=== PATIENT | female | born 1935 | race Caucasian/White ===

== ENCOUNTER → 2018-03-02 | Outpatient (CLI) | payer OTHER ==
[2018-02-19 15:32] VITALS: BP 134/53
[~2018-03-02] MED LIST: AMLO10TA6 PO; AMOX1TAB58 PO; ASPI-612 PO; CELE200C PO; CITA40TA5 PO; HYDR-2868 PO; HYDR-3164 PO; IPRA3AMP29 NEB; LIDO700A39 TP; METO-247 PO; METO100T7 PO; PRED20TA PO; Pantoprazole PO; SIMV40TA3 PO; [UNRECOGNIZED DRUG - OTHER]
--- NOTE | 2018-03-02 14:37 | KCIC ---
Examination: Left Lower Extremity Venous Doppler Ultrasound History: Left lower extremity swelling Comparison: None Procedure: Marcum scale, color flow 2D and spectal waveform analysis images are obtained with and without compression in the area of the common femoral vein, superficial femoral vein - femoral vein junction, main femoral vein (superficial femoral vein) and popliteal vein. Veins of the proximal calf are also imaged. Findings: There is normal duplex flow, color flow and compressibility of all visualized vein segments. No evidence of deep venous thrombus is present. Impression: No evidence of DVT in the left lower extremity venous system. Electronically signed by: David Ansari MD (03/02/2018 2:32 PM) [facility]
== END | disposition home or self-care (01) ==
LOC: KCIC US 12:59
PROVIDERS: ATTEND Nurse Practitioner
DX: M79.89 Other specified soft tissue disorders (principal)
CPT/HCPCS: 93971

== ENCOUNTER → 2018-04-01 | Outpatient (CLI) | payer OTHER ==
[2018-02-19 15:32] VITALS: BP 134/53
[~2018-04-01] MED LIST changes: -AMLO10TA6 PO; +AMLO10TA8 PO; +REGADENOSON 0.4 MG/5 ML DISP.SYRIN. IV ONE
--- NOTE | 2018-04-01 13:43 | RAD ---
MR#: [id number] Date of Study: 04/01/2018 Ordering Physician: MILLI SMITH, Referring Physician: GENE RDZ Tech: Jada Hill RT (R) (N) APPROVED REPORT Test Type: Pharmacological Stress Nurse/Tech: Aleida Hunt RN Test Indications: Diastolic Heart Failure Cardiac History: Hypertension, ex-smoker, brain aneurysm 22 yrs ago Medications: See Electronic Medical Record Medical History: See Electronic Medical Record Resting ECG: SR w/ ST depression on all leads Resting Heart Rate: 63 bpm Resting Blood Pressure: 147/53mmHg Pretest Chest Pain: None Nurse/Tech Notes S1S2, Clear LS Consent: The procedure was explained to the patient in lay terms. Informed consent was witnessed. Alexander eout was entered into [employer]. History and Stress Test performed by Aleida Hunt RN Pharm. Details Pharmacologic stress testing was performed using 0.4mg per 5ml of regadenoson given intravenously ove r 7-10 seconds. Stress Symptoms Dyspnea (o2 SAT down to 88% at RA- recovered to 95% during 4 min to 5 min of recovery phase), flush POST EXERCISE Reason for Termination: Infusion complete Max HR: 84 bpm Max Blood Pressure: 147/50mmHg Chest Pain: No. Arrhythmia: No. INTERPRETATION Stress EKG Conclusion: No evidence of stress induced EKG changes to suggest ischemia. Imaging Protocol IMAGE PROTOCOL: Rest Tc-99m/stress Tc-99m 1 day Rest: Stress: Viability: Radiopharm.Tc99m UegszcyzuHp45b Sestamibi Dose10.3mCi 33mCi Duration 15min. 10min. Img Date 04/01/2018 04/01/2018 Inj-Img [id number]. 60min. Rest Admin Site:IV - Right AntecubitalAdministrator:IRVING Bernard Stress Admin Site: IV - Right AntecubitalAdministrator: MEIR Hood, ARRT (R)(N) STRESS DATA End Diast. Vol.80.0mlAv. Heart Rate73.0bpm End Syst. Vol.15.0mlCO Index BSA0.0L/min Myocardial Vxyt903.0gEject. Xszzzcee68.0% Stress Rates Pk. Fill Rate2.86EDV/secLVtime Pk. Fill 199.38msec Pk. Empty Rate5.10ESV/secLVtime Pk. Yjnbw994.31msec 1/3 Pk. Fill1.47EDV/sec Stress Scores Regional WT1.00Summed WT4.00 Regional WM0.00Summed WM1.00 The rest and stress images show normal perfusion, normal contraction and thickening. LV Perf. Quant 17 Seg. SSS6.00 17 Seg. SRS9.00 17 Seg. SDS0.00 Stress Defect Extent (% LAD)3.10Rest Defect Extent (% LAD)11.30Rev. Defect Extent (% LAD)0.00 Stress Defect Extent (% LCX) 23.80Rest Defect Extent (% LCX)28.80Rev. Defect Extent (% LCX)0.00 Stress Defect Extent (% RCA)0.00Rest Defect Extent (% RCA)3.30Rev. Defect Extent (% RCA)0.00 Stress Defect Extent (% TORRES)10.00Rest Defect Extent (% TORRES)15.40Rev. Defect Extent (% TORRES)0.00 Other Information Quality:Good Risk Assessment: Low Risk Conclusion 1. No evidence of EKG changes with stress testing. 2. Normal perfusion at stress/rest. 3. Low risk study. 4. EF > 60%. Signed by : Eugenio Recinos, Electronically Approved : 04/01/2018 13:43:14
== END | disposition home or self-care (01) ==
LOC: NM 09:54
PROVIDERS: ATTEND Internal Medicine Cardiovascular Disease
DX: I11.0 Hypertensive heart disease with heart failure (principal); I50.32 Chronic diastolic (congestive) heart failure; Z87.891 Personal history of nicotine dependence; Z86.69 Personal history of other diseases of the nervous system and sense organs
CPT/HCPCS: 78452; 93017; 96374; A9500; J2785

== ENCOUNTER → 2019-04-14 | Outpatient (CLI) | payer OTHER ==
[2018-09-16 11:00] VITALS: BP 136/61
[~2019-04-14] MED LIST changes: +CELE-20 PO; +LIDO700A21 TP; -LIDO700A39 TP; -REGADENOSON 0.4 MG/5 ML DISP.SYRIN. IV ONE; +SIMV40TA18 PO; -SIMV40TA3 PO
--- NOTE | 2019-04-14 16:36 | KCIC ---
INDICATION: Osteoporosis screening. Postmenopausal screening COMPARISON: None. TECHNIQUE: Bone densitometry was performed through the lumbar spine FINDINGS: Lumbar Spine: BMD: 0.95 T-Score: -0.8 IMPRESSION: 1. Lumbar spine falls within the lower limits of normal range. Electronically signed by: Thad Stokes MD (04/14/2019 4:33 PM) [facility] [place]
== END | disposition home or self-care (01) ==
LOC: KCIC DEXA 14:32
PROVIDERS: ATTEND Family Medicine
DX: Z13.820 Encounter for screening for osteoporosis (principal); Z78.0 Asymptomatic menopausal state
CPT/HCPCS: 77080